=== PATIENT | male | born 1975 | race Caucasian/White ===

== ENCOUNTER 2023-08-27 16:26 | Emergency (ER) | payer OTHER ==
[2023-08-27] MEDS ORDERED: NA CHLORIDE 0.9% 1,000 ML ONE (17:11)
[2023-08-27 17:54] LABS: Absolute Basophils 0.1 K/uL (0-0.5); Absolute Eosinophils 0.1 K/uL (0-0.5); Absolute Lymphocytes (CBC) 2.6 K/uL (0.7-4.9); Absolute Monocytes 0.6 K/uL (0.1-1.3); Absolute Neutrophil 3.1 K/uL (1.8-8.0); Basophils % 0.9 % (0-1.3); Eosinophils % 1.4 % (0-4.4); Hematocrit 45.6 % (39.6-49.0); Hemoglobin 15.5 g/dL (13.6-17.9); Lymphocytes % 40.5 % (15.3-44.8); MCH 30.6 pg (27.0-35.0); MCHC 34.1 g/dL (32.0-36.0); MCV 89.9 fL (80-100); MPV 7.8 fL (7.6-11.3); Monocytes % 9.4 % (3.3-12.3); Neutrophils % 47.8 % (41.7-73.7); Nucleated Red Blood Cells % 0.1 % (0-0); Platelets 346 thou/uL (152-406); RBC Red Blood Cell Count 5.08 M/uL (4.33-5.43); Red Cell Distribution Width 12.2 % (12.1-15.2)
[2023-08-27 18:13] LABS: Anion Gap 8.5 mEq/L (5.0-15.0); Potassium 3.5 mEq/L (3.5-5.1)
[2023-08-27 18:14] LABS: Magnesium 2.2 mg/dL (1.6-2.4); Troponin High Sensitivity 4.7 pg/mL (<58.9)
[2023-08-28 14:53] VITALS: BP 135/92; TEMP 97.8; O2SAT 98
--- NOTE | 2023-08-30 14:46 | EKG ---
Test Date: 2023-08-27 Test Time: 17:58:34 [employer] Worker: PH MEASUREMENT RESULTS: Intervals: Rate: 73 WV: 136 QRSD: 100 QT: 390 QTc: 429 [place]: P: 12 WV: 136 QRS: -32 T: 108 INTERPRETIVE STATEMENTS: Normal sinus rhythm Left axis deviation Abnormal QRS-T angle, consider primary T wave abnormality Abnormal ECG No previous ECG available for comparison Electronically Signed On 08-30-23 14:39:48 CDT by Vinicius Hernandez
== END 2023-08-27 19:03 | disposition home or self-care (01) ==
LOC: ER 16:26
DX: F43.0 Acute stress reaction (principal); I10 Essential (primary) hypertension; F17.210 Nicotine dependence, cigarettes, uncomplicated
CPT/HCPCS: 93005; 85025; 80048; 36415; 83735; 84484; 99285; J7030